=== PATIENT | female | born 1935 | race Caucasian/White ===

== ENCOUNTER → 2016-10-28 | Outpatient (CLI) | payer MEDICARE, OTHER | LOC: MW.CHGS 08:00 | DX: D64.9 Anemia, unspecified (principal) | CPT/HCPCS: 99204 ==

== ENCOUNTER 2018-01-15 09:03 | Emergency (ER) | payer MEDICARE, OTHER ==
[2018-01-15] MEDS ORDERED: Ketorolac 60 MG/2 ML SDV IM ONE (09:44)
--- NOTE | 2018-01-15 09:52 | EDM.PDOC ---
ED HPI GENERAL MEDICAL PROBLEM - General Chief Complaint: Neck Problem Stated Complaint: NECK PAIN Time Seen by Provider: 01/15/18 09:35 - History of Present Illness INITIAL COMMENTS - FREE TEXT/NARRATIVE: HISTORY AND PHYSICAL: History of present illness: 82-year-old female presenting to the emergency department with chief complaint of bilateral neck pain 2 days . And states that approximately 2 days ago and have bilateral neck pain. She denies any trauma to the area or waking up with the symptoms. She has never had similar symptoms in the past. Initially she went to the urgent care here in [place] and was given 2 IM injections which she believes one was for pain in the other was for muscle relaxation. She was also given a description for a muscle relaxant, Flexeril 5 mg, which he states has not been working. States that the pain starts at the base of her skull and radiates posteriorly into her shoulders. She denies any decrease in strength, motion, sensation. She denies any symptoms of infection including fever, chills, malaise, nausea, abdominal pain, diarrhea. She currently denies any chest pain, palpitations, shortness of breath, syncopal episodes, or focal neurologic deficits. She has no significant cardiac history other than hypertension. No history of DE. She denies any leg pain. Review of systems: As per history of present illness and below otherwise all systems reviewed and negative. Past medical history: As per history of present illness and as reviewed below otherwise noncontributory. Surgical history: As per history of present illness and as reviewed below otherwise noncontributory. Social history: No reported history of drug or alcohol abuse. Family history: As per history of present illness and as reviewed below otherwise noncontributory. Physical exam: HEENT: Atraumatic, normocephalic, pupils reactive, negative for conjunctival pallor or scleral icterus, mucous membranes moist, throat clear, neck supple, nontender, trachea midline. Lungs: Clear to auscultation, breath sounds equal bilaterally, chest nontender. Heart: S1S2, regular, negative for clicks, rubs, or JVD. Abdomen: Soft, nondistended, nontender. Negative for masses or hepatosplenomegaly. Negative for costovertebral tenderness. Pelvis: Stable nontender. Genitourinary: Deferred. Rectal: Deferred. Extremities: Atraumatic, negative for cords or calf pain. Neurovascular unremarkable. Neuro: Awake, alert, oriented. Cranial nerves II through XII unremarkable. Cerebellum unremarkable. Motor and sensory unremarkable throughout. Exam nonfocal. Diagnostics: Cervical spine x-ray Therapeutics: Toradol 60 mg IM \ Methocar Impression: Neck strain Cervical degenerative disc disease anterolithiasis at C4-c5 Muscle spasm Plan: X-rays of her cervical spine revealed diffuse mild degenerative disc height loss as well as minimal anterolisthesis at C4?the C5. There was also mild to moderate facet arthrosis diffusely without evidence of acute fracture or bone lesions. Patient was advised of findings and instructed to use daily stretching exercises as well as take prescribed muscle relaxant methocarbamol. She was given Tylenol 3 #12 to help with her sleep. Patient was discharged in good conditions with above instructions and instructed to follow-up with her primary care provider Dr. Oliveros next week. Patient was discharged in good condition with instructions to return to emergency department if she had any new or worsening symptoms. Right Neck Pain Score (Numeric/FACES): 8 - Related Data Allergies Allergy/AdvReac Type Severity Reaction Status Date / Time hydrocodone Allergy Hallucinati Verified 01/15/18 09:21 ons Sulfa (Sulfonamide Allergy Rash Verified 01/15/18 09:21 Antibiotics) Home Meds: Home Meds ALPRAZolam [Xanax] 1 tab PO ASDIRECTED 01/15/18 [History] Amitriptyline [Elavil] 1 tab PO DAILY 01/15/18 [History] Levothyroxine 1 tab PO DAILY 01/15/18 [History] Losartan [Cozaar] 50 mg PO DAILY 01/15/18 [History] PARoxetine HCl [Paxil] 1 tab PO DAILY 01/15/18 [History] atorvaSTATin [Lipitor] 1 tab PO DAILY 01/15/18 [History] metFORMIN [Glucophage XR] 100 mg PO DAILY 01/15/18 [History] Past Medical History Cardiovascular History: Reports: High Cholesterol, Hypertension Respiratory History: Reports: Other (See Below) Other Respiratory History: emphysema Psychiatric History: Reports: Anxiety - Infectious Disease History Infectious Disease History: Reports: Chicken Pox - Past Surgical History HEENT Surgical History: Reports: Tonsillectomy Other Musculoskeletal Surgeries/Procedures:: L shoulder replacement, bilat knee replacement Social & Family History - Family History Family Medical History: Noncontributory - Tobacco Use Smoking Status *Q: Former Smoker Used Tobacco, but Quit: Yes Month/Year Tobacco Last Used: 1994 - Caffeine Use Caffeine Use: Reports: Coffee - Recreational Drug Use Recreational Drug Use: No ED ROS GENERAL - Review of Systems Review Of Systems: See Below ED EXAM, GENERAL - Physical Exam Exam: See Below Course - Vital Signs Last Recorded V/S: Last Vital Signs Temp 98.4 F 01/15/18 09:17 Pulse 118 H 01/15/18 09:17 Resp 20 01/15/18 09:17 BP 179/84 H 01/15/18 09:17 Pulse Ox 97 01/15/18 09:17 - Orders/Labs/Meds Orders: Active Orders 24 hr Category Date Time Status Cervical Spine 2V or 3V [CR] Stat Exams 01/15/18 09:44 Taken Meds: Medications Discontinued Medications Generic Name Dose Route Start Last Admin Trade Name Freq PRN Reason Stop Dose Admin Ketorolac Tromethamine 60 mg 01/15/18 09:44 01/15/18 10:06 Toradol IM 01/15/18 09:45 60 mg ONETIME ONE Administration Departure - Departure Time of Disposition: 11:08 Disposition: Home, Self-Care 01 Condition: Good Clinical Impression: Strain of neck - Discharge Information Referrals: PCP,None [Primary Care Provider] - Forms: ED Department Discharge Additional Instructions: My general discharge The following information is given to patients seen in the emergency department who are being discharged to home. This information is to outline your options for follow-up care. We provide all patients seen in our emergency department with a follow-up referral. The need for follow-up, as well as the timing and circumstances, are variable depending upon the specifics of your emergency department visit. If you don't have a primary care physician on staff, we will provide you with a referral. We always advise you to contact your personal physician following an emergency department visit to inform them of the circumstance of the visit and for follow-up with them and/or the need for any referrals to a consulting specialist. The emergency department will also refer you to a specialist when appropriate. This referral assures that you have the opportunity for follow-up care with a specialist. All of these measure are taken in an effort to provide you with optimal care, which includes your follow-up. Under all circumstances we always encourage you to contact your private physician who remains a resource for coordinating your care. When calling for follow-up care, please make the office aware that this follow-up is from your recent emergency room visit. If for any reason you are refused follow-up, please contact the [facility] Emergency Department at and asked to speak to the emergency department charge nurse. [address] [address] Follow-up with primary care provider next week. Take medications as prescribed and return to emergency department if any new or worsening symptoms - My Orders Last 24 Hours: My Active Orders 01/15/18 09:44 Cervical Spine 2V or 3V [CR] Stat - Assessment/Plan Last 24 Hours: My Active Orders 01/15/18 09:44 Cervical Spine 2V or 3V [CR] Stat
--- NOTE | 2018-01-17 10:39 | CR ---
EXAM DATE: 01/15/18 PATIENT'S AGE: 82 Patient: LISA RODRIGUEZ Facility: [place], [place] Site . Site : [id number] Study: XRay Spine Cervical [id number]/19/2018 10:24:41 AM Ordering Physician: Willy Rousseau Final Report: INDICATION: Pain. TECHNIQUE: Three views. IMPRESSION: Diffuse mild degenerative disk height loss. Minimal anterolisthesis C4-5. Mild to moderate facet arthrosis diffusely. No acute fracture. No bone lesion. Prevertebral soft tissues appear normal. Dictated by Jose Davalos MD @ Jan 15 2018 10:53AM (Electronic Signature) Report Signed by Proxy. OTF
== END 2018-01-15 11:30 | disposition home or self-care (01) ==
LOC: MW.ED 09:03
DX: S16.1XXA Strain of muscle, fascia and tendon at neck level, initial encounter (principal); M50.30 Other cervical disc degeneration, unspecified cervical region; M43.12 Spondylolisthesis, cervical region; X58.XXXA Exposure to other specified factors, initial encounter
CPT/HCPCS: 72040; 96372; 99283; J1885

== ENCOUNTER 2020-04-27 12:42 | Emergency (ER) | payer MEDICARE, OTHER ==
--- NOTE | 2020-04-27 13:18 | EDM.PDOC ---
ED HPI GENERAL MEDICAL PROBLEM - General Chief Complaint: Fever Stated Complaint: FEVER/MUSCLE ACHES Time Seen by Provider: 04/27/20 12:48 - History of Present Illness INITIAL COMMENTS - FREE TEXT/NARRATIVE: HISTORY AND PHYSICAL: History of present illness: This 84-year-old female presents to the emergency department with a past medical history of hypertension, diabetes mellitus and hyperlipidemia. Patient presents with fever, body aches, headache, sore throat, runny nose, and intermittent cough. Denies any other symptoms. No chest pain. No other associated signs or symptoms. No other modifying, aggravating or alleviating factors. Previous COVID-19 testing 2 or 3 weeks ago and was negative. Review of systems: A 10-point review of systems, other than pertinent positives and negatives as stated per HPI, is otherwise negative. Past medical history: As per history of present illness and as reviewed below otherwise noncontributory. Surgical history: As per history of present illness and as reviewed below otherwise noncontributory. Social history: No reported history of drug or alcohol abuse. Family history: As per history of present illness and as reviewed below otherwise noncontributory. Physical exam: VITAL SIGNS: Reviewed. GENERAL: Mild distress. HEAD: No signs of head trauma. EYES: Pupils are equal. Extraocular motions intact. EARS: Hearing grossly intact. MOUTH: Oropharynx is normal. NECK: No adenopathy, no JVD. CHEST: Mild tachypnea. No accessory muscle use. No adventitious breath sounds. CARDIAC: Regular rate and rhythm. Normal S1 and S2, without murmurs, gallops, or rubs. VASCULAR: Peripheral pulses normal and equal in all extremities. ABDOMEN: Soft, without detectable tenderness. No sign of distention. No rebound or guarding, and no masses palpated. MUSCULOSKELETAL: Good range of motion of all major joints. Extremities without clubbing, cyanosis or edema. NEUROLOGIC EXAM: Alert and oriented x 3. No focal sensory or motor deficits. Speech normal. Follows commands. PSYCHIATRIC: Mood normal. SKIN: No rash or lesions. Initial Differential Diagnosis & Plan: Likely COVID-19. Other differential includes viral infection not related to pandemic COVID-19, atypical pneumonia, typical pneumonia, sinusitis. Chest x-ray, COVID-19 testing, laboratory analysis, initial oxygen saturation is reassuring. Unlikely to require admission. Definitive disposition and diagnosis as appropriate pending reevaluation and review of above. generalized bodyaches Pain Score (Numeric/FACES): 5 - Related Data Allergies Allergy/AdvReac Type Severity Reaction Status Date / Time hydrocodone Allergy Hallucinati Verified 04/27/20 13:15 ons Sulfa (Sulfonamide Allergy Rash Verified 04/27/20 13:15 Antibiotics) Home Meds: Home Meds ALPRAZolam [Xanax] 1 tab PO ASDIRECTED 01/15/18 [History] Amitriptyline [Elavil] 1 tab PO DAILY 01/15/18 [History] Levothyroxine 1 tab PO DAILY 01/15/18 [History] Losartan [Cozaar] 50 mg PO DAILY 01/15/18 [History] PARoxetine HCl [Paxil] 1 tab PO DAILY 01/15/18 [History] atorvaSTATin [Lipitor] 1 tab PO DAILY 01/15/18 [History] metFORMIN [Glucophage XR] 100 mg PO DAILY 01/15/18 [History] Prochlorperazine [Compazine] 10 mg PO Q8H PRN 3 Days #17 tab 04/27/20 [Rx] Past Medical History Cardiovascular History: Reports: High Cholesterol, Hypertension Respiratory History: Reports: Other (See Below) Other Respiratory History: emphysema Psychiatric History: Reports: Anxiety - Infectious Disease History Infectious Disease History: Reports: Chicken Pox - Past Surgical History HEENT Surgical History: Reports: Tonsillectomy Other Musculoskeletal Surgeries/Procedures:: L shoulder replacement, bilat knee replacement Social & Family History - Family History Family Medical History: Noncontributory - Caffeine Use Caffeine Use: Reports: Coffee ED ROS GENERAL - Review of Systems Review Of Systems: See Below (noted) ED EXAM, GENERAL - Physical Exam Exam: See Below (noted) EKG INTERPRETATION EKG Interpretation Comments: 12 lead EKG interpretation Obtained: April 27, 2020 at 1:36 PM Rhythm: Sinus Rate: [place]: Normal Intervals: Normal ST/T Segments: No acute ischemic changes Interpretation: Sinus Rhythm Course - Vital Signs Last Recorded V/S: Last Vital Signs Temp 98.2 F 04/27/20 13:07 Pulse 101 H 04/27/20 14:15 Resp 19 04/27/20 14:15 BP 176/70 H 04/27/20 14:15 Pulse Ox 96 04/27/20 14:15 - Orders/Labs/Meds Orders: Active Orders 24 hr Category Date Time Status EKG 12 Lead [EKG Documentation Completion] [RC] STAT Care 04/27/20 13:15 Active Chest 1V Frontal [CR] Stat Exams 04/27/20 13:14 Ordered Chest 1V Frontal [CR] Stat Exams 04/27/20 14:42 Stop Req Labs: Laboratory Tests 04/27/20 04/27/20 04/27/20 Range/Units 13:48 13:48 13:48 WBC 9.18 (4.0-11.0) K/uL RBC 4.02 L (4.30-5.90) M/uL Hgb 12.1 (12.0-16.0) g/dL Hct 37.0 (36.0-46.0) % MCV 92.0 (80.0-98.0) fL MCH 30.1 (27.0-32.0) pg MCHC 32.7 (31.0-37.0) g/dL RDW Std Deviation 45.7 (28.0-62.0) fl RDW Coeff of Angelia 13 (11.0-15.0) % Plt Count 174 (150-400) K/uL MPV 10.90 (7.40-12.00) fL Neut % (Auto) 63.8 (48.0-80.0) % Lymph % (Auto) 26.5 (16.0-40.0) % [place] % (Auto) 8.4 (0.0-15.0) % Eos % (Auto) 0.8 (0.0-7.0) % Baso % (Auto) 0.5 (0.0-1.5) % Neut # (Auto) 5.9 H (1.4-5.7) K/uL Lymph # (Auto) 2.4 (0.6-2.4) K/uL [place] # (Auto) 0.8 (0.0-0.8) K/uL Eos # (Auto) 0.1 (0.0-0.7) K/uL Baso # (Auto) 0.1 (0.0-0.1) K/uL Nucleated RBC % 0.0 /100WBC Nucleated RBCs # 0 K/uL Lactate 2.2 H* (0.20-2.00) mmol/L Sodium 133 L (136-145) mmol/L Potassium 4.2 (3.5-5.1) mmol/L Chloride 98 (98-107) mmol/L Carbon Dioxide 23.5 (21.0-32.0) mmol/L BUN 9 (7.0-18.0) mg/dL Creatinine 0.8 (0.6-1.0) mg/dL Est Cr Clr Drug Dosing 47.95 mL/min Estimated GFR (MDRD) > 60.0 ml/min Glucose 117 H (74-106) mg/dL Calcium 8.8 (8.5-10.1) mg/dL Total Bilirubin 0.3 (0.2-1.0) mg/dL AST 104 H (15-37) IU/L ALT 95 H (14-63) IU/L Alkaline Phosphatase 59 (46-116) U/L C-Reactive Protein 0.90 (0.00-0.90) mg/dL B-Natriuretic Peptide (<100) PG/ML Total Protein 7.2 (6.4-8.2) g/dL Albumin 3.7 (3.4-5.0) g/dL Globulin 3.5 (2.6-4.0) g/dL Albumin/Globulin Ratio 1.1 (0.9-1.6) COVID-19 (WILFRED) (NEGATIVE) 04/27/20 04/27/20 Range/Units 13:48 14:04 WBC (4.0-11.0) K/uL RBC (4.30-5.90) M/uL Hgb (12.0-16.0) g/dL Hct (36.0-46.0) % MCV (80.0-98.0) fL MCH (27.0-32.0) pg MCHC (31.0-37.0) g/dL RDW Std Deviation (28.0-62.0) fl RDW Coeff of Angelia (11.0-15.0) % Plt Count (150-400) K/uL MPV (7.40-12.00) fL Neut % (Auto) (48.0-80.0) % Lymph % (Auto) (16.0-40.0) % [place] % (Auto) (0.0-15.0) % Eos % (Auto) (0.0-7.0) % Baso % (Auto) (0.0-1.5) % Neut # (Auto) (1.4-5.7) K/uL Lymph # (Auto) (0.6-2.4) K/uL [place] # (Auto) (0.0-0.8) K/uL Eos # (Auto) (0.0-0.7) K/uL Baso # (Auto) (0.0-0.1) K/uL Nucleated RBC % /100WBC Nucleated RBCs # K/uL Lactate (0.20-2.00) mmol/L Sodium (136-145) mmol/L Potassium (3.5-5.1) mmol/L Chloride (98-107) mmol/L Carbon Dioxide (21.0-32.0) mmol/L BUN (7.0-18.0) mg/dL Creatinine (0.6-1.0) mg/dL Est Cr Clr Drug Dosing mL/min Estimated GFR (MDRD) ml/min Glucose (74-106) mg/dL Calcium (8.5-10.1) mg/dL Total Bilirubin (0.2-1.0) mg/dL AST (15-37) IU/L ALT (14-63) IU/L Alkaline Phosphatase (46-116) U/L C-Reactive Protein (0.00-0.90) mg/dL B-Natriuretic Peptide 19 (<100) PG/ML Total Protein (6.4-8.2) g/dL Albumin (3.4-5.0) g/dL Globulin (2.6-4.0) g/dL Albumin/Globulin Ratio (0.9-1.6) COVID-19 (WILFRED) POSITIVE H (NEGATIVE) - Re-Assessments/Exams Free Text/Narrative Re-Assessment/Exam: 04/27/20 14:59 The patient is doing well. Her oxygen saturation on my reevaluation is 95%. She is COVID-19 positive. No evidence of significant bilateral pneumonia. I w ill be discharging her home at this time for expectant care at home. I will give her an antiemetic to help with her cough and mild nausea. My diagnostic impression: 1. COVID-19 infection 2. History of hypertension 3. History of diabetes mellitus 4. History of hyperlipidemia The patient does have significant risk factors however at this time she does not meet admission criteria because her oxygen saturation is normal on room air. Departure - Departure Time of Disposition: 15:00 Disposition: Home, Self-Care 01 Clinical Impression: COVID-19 - Discharge Information *PRESCRIPTION DRUG MONITORING PROGRAM REVIEWED*: Not Applicable *COPY OF PRESCRIPTION DRUG MONITORING REPORT IN PATIENT EMERALD: Not Applicable Instructions: COVID-19 Frequently Asked Questions, COVID-19, COVID-19: How to Protect Yourself and Others - CDC, Prevent the Spread of COVID-19 if You Are Sick - [facility] Referrals: Marvin Oliveros MD [Primary Care Provider] - Forms: ED Department Discharge Additional Instructions: The following information is given to patients seen in the emergency department who are being discharged to home. This information is to outline your options for follow-up care. We provide all patients seen in our emergency department with a follow-up referral. The need for follow-up, as well as the timing and circumstances, are variable depending upon the specifics of your emergency department visit. If you don't have a primary care physician on staff, we will provide you with a referral. We always advise you to contact your personal physician following an emergency department visit to inform them of the circumstance of the visit and for follow-up with them and/or the need for any referrals to a consulting s pecialist. The emergency department will also refer you to a specialist when appropriate. This referral assures that you have the opportunity for follow-up care with a specialist. All of these measure are taken in an effort to provide you with optimal care, which includes your follow-up. Thank you for coming to the [facility] urgency department for your care today. It was Dr. Montez's pleasure to take care of you. [facility] - Primary Care [address] [place] [id number] [address] [address] You have COVID-19 infection. Your oxygen saturation is normal. You are at high risk to have complications from this disease including respiratory failure and other complications. If you are feeling worse please come back and we will check your oxygen saturation and reevaluate you. Currently do not meet ad mission criteria. There are no outpatient medications that have been proven to be effective in helping with this disease. Please return if you have any concerns. We are always happy to see you. Under all circumstances we always encourage you to contact your private physician who remains a resource for coordinating your care. When calling for follow-up care, please make the office aware that this follow-up is from your recent emergency room visit. If for any reason you are refused follow-up, please contact the [facility] Emergency Department at and asked to speak to the emergency department charge nurse. Sepsis Event Note (ED) - Evaluation Sepsis Screening Result: No Definite Risk - Focused Exam Vital Signs: Vital Signs Temp Pulse Resp BP Pulse Ox 04/27/20 14:15 101 H 19 176/70 H 96 04/27/20 13:07 98.2 F 93 20 152/63 H 95 - My Orders Last 24 Hours: My Active Orders 04/27/20 13:14 Chest 1V Frontal [CR] Stat 04/27/20 13:15 EKG 12 Lead [EKG Documentation Completion] [RC] STAT 04/27/20 14:42 Chest 1V Frontal [CR] Stat - Assessment/Plan Last 24 Hours: My Active Orders 04/27/20 13:14 Chest 1V Frontal [CR] Stat 04/27/20 13:15 EKG 12 Lead [EKG Documentation Completion] [RC] STAT 04/27/20 14:42 Chest 1V Frontal [CR] Stat
[2020-04-27 14:29] LABS: BLOOD UREA NITROGEN,BUN 9 mg/dL (7.0-18.0); CARBON DIOXIDE,CO2 23.5 mmol/L (21.0-32.0); CHLORIDE,CL 98 mmol/L (98-107); GLUCOSE RANDOM 117 mg/dL (74-106); POTASSIUM,K 4.2 mmol/L (3.5-5.1); SODIUM,NA 133 mmol/L (136-145)
--- NOTE | 2020-04-27 16:08 | CR ---
INDICATION: COVID positive TECHNIQUE: Chest 1 view COMPARISON: None FINDINGS: Cardiovascular and mediastinum: Heart size and vasculature are normal in caliber and appearance. Lungs and pleural spaces: Lungs are clear. No sign of infiltrate or mass. No sign of pleural effusion. No pneumothorax. Bones and soft tissues: No significant findings. IMPRESSION: Negative chest. No sign of pneumonia. Dictated by Varun Guillaume MD @ Apr 27 2020 4:06PM Signed by Dr. Varun Guillaume @ Apr 27 2020 4:06PM
== END 2020-04-27 15:34 | disposition home or self-care (01) ==
LOC: MW.ED 12:42
DX: U07.1 COVID-19 (principal); I10 Essential (primary) hypertension; E78.5 Hyperlipidemia, unspecified; E11.9 Type 2 diabetes mellitus without complications; F41.9 Anxiety disorder, unspecified; J43.9 Emphysema, unspecified; Z88.2 Allergy status to sulfonamides; Z88.5 Allergy status to narcotic agent; Z79.899 Other long term (current) drug therapy
CPT/HCPCS: 36415; 71045; 80053; 83605; 83880; 85025; 86140; 93005; 99284; U0002; 99283

== ENCOUNTER 2020-10-29 06:41 | Day surgery (SDC) | payer MEDICARE, OTHER ==
[~2020-10-29 06:41] MED LIST: Lactated Ringers 1,000 ML IV SCH; Sodium Chloride 0.9% 10 ML SDV IV PRN; Sodium Chloride 0.9% 10 ML Syringe FLUSH PRN; Sodium Chloride 0.9% 2.5 ML Syringe FLUSH PRN
[2020-10-29] MEDS ORDERED: Propofol 200 MG/20 ML SDV ONE ×3 (06:53→08:23)
[2020-10-29] MEDS ORDERED: fentaNYL 100 MCG/2 ML SDV ONE (06:59)
--- NOTE | 2020-10-29 07:24 | PCM.PREANE ---
Preanesthetic Assessment - Anesthesia/Transfusion/Family Hx Anesthesia History: Prior Anesthesia Without Reaction Other Type of Anesthesia Reaction Comment: hard to wake up after shoulder surgery Family History of Anesthesia Reaction: No Transfusion History: No Prior Transfusion(s) Intubation History: Unknown - Review of Systems General: No Symptoms Pulmonary: No Symptoms Cardiovascular: No Symptoms Gastrointestinal: No Symptoms Neurological: No Symptoms Other: Reports: None - Physical Assessment Vital Signs: Last Vital Signs Temp 35.8 C L 10/29/20 06:44 Pulse 89 10/29/20 06:44 Resp 15 10/29/20 06:44 BP 131/69 10/29/20 06:44 Pulse Ox 95 10/29/20 06:44 Height: 5 ft 5 in Weight: 71.214 kg ASA Class: 3 Mental Status: Alert & Oriented x3 Airway Class: Mallampati = 2 Dentition: Reports: Dentures (upper), Partial (lower) Thyro-Mental Finger Breadths: 3 Mouth Opening Finger Breadths: 3 ROM/Head Extension: Limited/Partial Lungs: Clear to Auscultation, Normal Respiratory Effort Cardiovascular: Regular Rate, Regular Rhythm - Allergies Allergies/Adverse Reactions: Allergies Allergy/AdvReac Type Severity Reaction Status Date / Time hydrocodone Allergy Hallucinati Verified 10/23/20 12:03 ons Sulfa (Sulfonamide Allergy Rash Verified 10/23/20 12:03 Antibiotics) - Blood Blood Available: No - Anesthesia Plan Pre-Op Medication Ordered: None - Acknowledgements Anesthesia Type Planned: MAC Pt an Appropriate Candidate for the Planned Anesthesia: Yes Alternatives and Risks of Anesthesia Discussed w Pt/Guardian: Yes Pt/Guardian Understands and Agrees with Anesthesia Plan: Yes PreAnesthesia Questionnaire HEENT History: Reports: Impaired Vision, Other (See Below) Other HEENT History: wears glasses Cardiovascular History: Reports: High Cholesterol, Hypertension Other Cardiovascular History: varicose veins Respiratory History: Reports: Other (See Below) Other Respiratory History: emphysema Gastrointestinal History: Reports: GERD Other Gastrointestinal History: positive cologuard Genitourinary History: Reports: None [employer]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: Musculoskeletal History: Reports: Arthritis Other Musculoskeletal History: hx fx ankle Neurological History: Reports: Migraines Psychiatric History: Reports: Anxiety Endocrine/Metabolic History: Reports: Diabetes, Type II, Hypothyroidism Hematologic History: Reports: Anemia Immunologic History: Reports: None Oncologic (Cancer) History: Reports: None Dermatologic History: Reports: None - Infectious Disease History Infectious Disease History: Reports: Chicken Pox - Past Surgical History Head Surgeries/Procedures: Reports: None HEENT Surgical History: Reports: Cataract Surgery, Tonsillectomy Cardiovascular Surgical History: Reports: None Respiratory Surgical History: Reports: None GI Surgical History: Reports: Appendectomy, Colonoscopy (20 years ago -[place]) Female Surgical History: Reports: Hysterectomy, Salpingo-Oophorectomy, Other (See Below) Other Female Surgeries/Procedures: axillary lumpectomy Endocrine Surgical History: Reports: Thyroidectomy, Other (See Below) Other Endocrine Surgeries/Procedures: partial thyroidectomy Neurological Surgical History: Reports: None Musculoskeletal Surgical History: Reports: Knee Replacement, Shoulder Surgery, Other (See Below) (excision of mass rt. foot) Other Musculoskeletal Surgeries/Procedures:: L shoulder replacement, bilat knee replacement Oncologic Surgical History: Reports: None Dermatological Surgical History: Reports: None - SUBSTANCE USE Tobacco Use Status *Q: Former Tobacco User Tobacco Use Within Last Twelve Months: No Recreational Drug Use History: No - HOME MEDS Home Medications: Home Meds Levothyroxine 112 mcg PO DAILY 01/15/18 [History] Losartan [Cozaar] 100 mg PO DAILY 01/15/18 [History] PARoxetine HCl [Paxil] 20 mg PO DAILY 01/15/18 [History] atorvaSTATin [Lipitor] 10 mg PO BEDTIME 01/15/18 [History] metFORMIN [Glucophage XR] 500 mg PO ACBREAKFAST 01/15/18 [History] ALPRAZolam [Alprazolam] 0.25 mg PO BEDTIME 10/23/20 [History] Aspirin [Adult Aspirin Regimen] 81 mg PO DAILY 10/23/20 [History] Calc/D3/Mag/Zn/Ladonna/Tomas/[place] [Calcium 600 MG Plus Vit D] 1 tab PO BID 10/23/20 [History] Cholecalciferol (Vitamin D3) [Vitamin D3] 5,000 units PO DAILY 10/23/20 [History] Clindamycin Phosphate [Cleocin 2% Vaginal Crm] 1 applic VAG ASDIRECTED PRN 10/23/20 [History] Fluticasone/Vilanterol [Breo Ellipta 200-25 MCG Inhalation Kit] 1 puff INH ASDIRECTED 10/23/20 [History] Multivitamin 1 tab PO DAILY 10/23/20 [History] Omeprazole 20 mg PO ACLUNCH 10/23/20 [History] metFORMIN HCl [Metformin HCl] 1,000 mg PO BEDTIME 10/23/20 [History] - CURRENT (IN HOUSE) MEDS Current Meds: Current Medications Lactated Ringer's (Ringers, Lactated) 1,000 mls @ 125 mls/hr IV ASDIRECTED NEIL Last Admin: 10/29/20 07:05 Dose: 125 mls/hr Documented by: Sodium Chloride (Saline Flush) 2.5 ml FLUSH ASDIRECTED PRN PRN Reason: Keep Vein Open Sodium Chloride (Normal Saline) 10 ml IV ASDIRECTED PRN PRN Reason: IV Use Discontinued Medications Fentanyl (Sublimaze) Confirm Administered Dose 100 mcg .ROUTE .STK-MED ONE Stop: 10/29/20 07:00 Lidocaine HCl (Xylocaine-Mpf 1%) Confirm Administered Dose 5 ml .ROUTE .STK-MED ONE Stop: 10/29/20 06:55 Propofol (Diprivan 20 Ml) Confirm Administered Dose 200 mg .ROUTE .STK-MED ONE Stop: 10/29/20 06:54
--- NOTE | 2020-10-29 08:48 | PCM.OPNOTE ---
- General Post-Op/Procedure Note Date of Surgery/Procedure: 10/29/20 Operative Procedure(s): Diagnostic colonoscopy Findings: cecal polyp, appendical polyp, rectal polyp Pre Op Diagnosis: Positive cologuard test Post-Op Diagnosis: Appendicile orifice polyp, cecal polyp, rectal polyp Anesthesia Technique: [facility] [place] Primary Surgeon: Jeana Salazar Condition: Good
--- NOTE | 2020-10-29 09:08 | PCM.POSTAN ---
POST ANESTHESIA ASSESSMENT - MENTAL STATUS Mental Status: Alert, Oriented - VITAL SIGNS Vital Signs: Last Vital Signs Temp 36.5 C 10/29/20 09:00 Pulse 72 10/29/20 09:00 Resp 14 10/29/20 09:00 BP 150/66 H 10/29/20 09:00 Pulse Ox 93 L 10/29/20 09:00 - RESPIRATORY Respiratory Status: Respiratory Rate WNL, Airway Patent, O2 Saturation Stable - CARDIOVASCULAR CV Status: Pulse Rate WNL, Blood Pressure Stable - GASTROINTESTINAL GI Status: No Symptoms - PAIN Pain Score: 0 - POST OP HYDRATION Hydration Status: Adequate & Stable - OBSERVATIONS Free Text/Narrative:: No anesthesia problems
--- NOTE | 2020-10-29 09:26 | PCM48HPAN ---
Post Anesthesia Note - EVALUATION WITHIN 48HRS OF ANESTHETIC Vital Signs in Normal Range: Yes Patient Participated in Evaluation: Yes Respiratory Function Stable: Yes Airway Patent: Yes Cardiovascular Function Stable: Yes Hydration Status Stable: Yes Pain Control Satisfactory: Yes Nausea and Vomiting Control Satisfactory: Yes Mental Status Recovered: Yes Vital Signs: Last Vital Signs Temp 36.5 C 10/29/20 09:00 Pulse 72 10/29/20 09:00 Resp 14 10/29/20 09:00 BP 150/66 H 10/29/20 09:00 Pulse Ox 93 L 10/29/20 09:00 - COMMENTS/OBSERVATIONS Free Text/Narrative:: No anesthesia problems
--- NOTE | 2020-10-30 07:40 | OR ---
SURGEON: JEANA SALAZAR MD DATE OF PROCEDURE: 10/29/2020 PREOPERATIVE DIAGNOSIS: Positive Cologuard. POSTOPERATIVE DIAGNOSES: 1. Cecal polyp. 2. Appendiceal polyp. 3. Rectal polyp. PROCEDURE PERFORMED: Diagnostic colonoscopy. PRIMARY SURGEON: Jeana Salazar MD. ANESTHESIA: MAC. INSTRUMENT USED: Olympus colonoscope. EXTENT OF EXAMINATION: To the cecum. PREPARATION: Good. LIMITATIONS: None. INDICATIONS FOR EXAMINATION: The patient is an 85-year-old female who presented with a positive Cologuard test. I explained the need for diagnostic colonoscopy. I explained the procedure, expected perioperative course, and the risks. The patient verbalized understanding and wishes to proceed. PROCEDURE IN DETAIL: The patient was brought into the endoscopy suite and placed in the left lateral decubitus position. A time-out was completed verifying the patient's name, age, date of , allergies, and procedure to be performed. Monitored anesthesia care was induced, and continuous oxygen was provided via nasal cannula throughout the procedure. After adequate sedation was achieved, a digital rectal exam was performed. This exam showed mildly enlarged hemorrhoids. A well-lubricated colonoscope was inserted in the rectum and advanced under direct visualization to the level of the cecum. The cecum was identified by both visual and anatomic landmarks. A photograph was taken of the cecal cap; however, due to looping of the scope more proximally, I was unable to retroflex the scope within the cecum. The scope was then fully withdrawn while examining the color, texture, anatomy, and integrity of the mucosa from the cecum to the anal canal. The patient was noted to have a small pedunculated polyp at the appendiceal base. This was removed in piecemeal fashion using a cold biopsy forceps. Adjacent to this was a cecal polyp. It was flat and sessile. It was difficult for me to ascertain whether this was hyperplastic or a tubular adenoma. Either way, I removed it in a piecemeal fashion using a cold biopsy forceps. The remainder of the colon appeared normal. When the scope was brought into the rectum, a small polyp was noted at the proximal aspect of the rectum. This was removed in piecemeal fashion using a cold biopsy forceps and sent to Pathology, labeled as rectal polyp. The scope was then retroflexed within the rectum to allow visualization of the anal canal opening. This appeared normal, and a photograph was taken. The scope was straightened out and fully withdrawn. The cecum to anus time was 30 minutes. The patient tolerated the procedure well was transferred to the PACU in stable condition. ENDOSCOPIC DIAGNOSES: 1. Cecal polyp. 2. Appendiceal polyp. 3. Rectal polyp. RECOMMENDATIONS: Follow up in clinic in 2 weeks. MARCIA TAYLOR /[id number]
== END 2020-10-29 09:35 | disposition home or self-care (01) ==
LOC: MW.SDS 06:41
PROVIDERS: ATTEND Surgery
DX: D12.0 Benign neoplasm of cecum (principal); K64.9 Unspecified hemorrhoids; K62.1 Rectal polyp; D64.9 Anemia, unspecified; I10 Essential (primary) hypertension; E78.00 Pure hypercholesterolemia, unspecified; E03.9 Hypothyroidism, unspecified; E11.9 Type 2 diabetes mellitus without complications; Z88.5 Allergy status to narcotic agent; Z88.2 Allergy status to sulfonamides; Z79.82 Long term (current) use of aspirin; Z79.899 Other long term (current) drug therapy; Z79.890 Hormone replacement therapy; Z98.890 Other specified postprocedural states; Z87.891 Personal history of nicotine dependence
CPT/HCPCS: 45380; J2704; J3010; J7120

== ENCOUNTER 2021-08-29 14:10 | Emergency (ER) | payer MEDICARE, OTHER ==
--- NOTE | 2021-08-29 15:42 | EDM.PDOC ---
ED HPI GENERAL MEDICAL PROBLEM - General Chief Complaint: Upper Extremity Injury/Pain Stated Complaint: BRUISED WRIST Time Seen by Provider: 08/29/21 15:30 Source of Information: Reports: Patient History Limitations: Reports: No Limitations - History of Present Illness INITIAL COMMENTS - FREE TEXT/NARRATIVE: HISTORY AND PHYSICAL: History of present illness: Patient is an 85-year-old female who presents to the emergency department for complaints of bruising on her inner left wrist that she noticed today. The patient states the area is not sore to touch and does not identify any trauma to cause the bruising. The patient is due for surgery soon and is concerned as to the bruising. Patient has never had anything happen like this previously. Besides this incident the patient has been otherwise healthy. Patient denies any fever, chills, headache, change in vision, syncope or near syncope. Denies any chest pain, back pain, shortness of breath or cough. Denies any abdominal pain, nausea, vomiting, diarrhea, constipation or dysuria. Has not noted any blood in urine or stool. Patient has been eating and drinking appropriately. Review of systems: As per history of present illness and below otherwise all systems reviewed and negative. Past medical history: As per history of present illness and as reviewed below otherwise noncontributory. Surgical history: As per history of present illness and as reviewed below otherwise noncontributory. Social history: See social history for further information Family history: As per history of present illness and as reviewed below otherwise noncontributory. Physical exam: General: Well developed and well nourished. Alert and orientated x 3. Nontoxic in appearance and in no acute distress. Vital signs are stable and have been reviewed by me. Nursing notes were reviewed. HEENT: Atraumatic, normocephalic, pupils equal and reactive bilaterally, negative for conjunctival pallor or scleral icterus, mucous membranes moist, TMs normal bilaterally, throat clear, neck supple, nontender, trachea midline. No drooling or trismus noted. No meningeal signs. No hot potato voice noted. Lungs: Clear to auscultation bilaterally. No wheezes, rales, or rhonchi. Chest nontender. Normal work of breathing, no accessory muscles used. Heart: S1S2, regular rate and rhythm without overt murmur, gallops, or rubs. No JVD. No peripheral edema Abdomen: Soft, nondistended, nontender. Normoactive bowel sounds. Negative for masses or costovertebral tenderness. Skin: Intact, warm, dry. Large area of bruising left inner wrist. Hematologic: No petechiae or purpra. Mucosa appropriate color and normal nail bed color and refill. Extremities: Atraumatic, moves all extremities per self without difficulty or deficits, negative for cords or calf pain. Neurovascular unremarkable. Neuro: Awake, alert, oriented. Cranial nerves II through XII unremarkable. Cerebellum unremarkable. Motor and sensory unremarkable throughout. Exam non focal. Psychiatric: Mood and affect are appropriate. Normal thought process. Answering questions appropriately. Notes: *This patient was seen and evaluated during the 2019 SARS-CoV-2 novel coronavir us pandemic period. Community viral transmission is ongoing at time of this encounter and the emergency department is operating under pandemic response procedures. As stated above the patient is an 85-year-old female who presents to the emergency department for complaints of bruising on her inner left wrist that she noticed today. The patient states the area is not sore to touch and does not id entify any trauma to cause the bruising. She is to have surgery and is concerned about the bruising without any cause. I have assured the patient that I told her we could do blood work in the emergency department. The patient would like this to be done. I was told the patient left the emergency room prior to receiving the blood work and being discharged. Definitive disposition and diagnosis as appropriate pending reevaluation and review of above. - Related Data Allergies Allergy/AdvReac Type Severity Reaction Status Date / Time hydrocodone Allergy Hallucinati Verified 08/29/21 14:49 ons Sulfa (Sulfonamide Allergy Rash Verified 08/29/21 14:49 Antibiotics) Home Meds: Home Meds Levothyroxine 112 mcg PO DAILY 01/15/18 [History] Losartan [Cozaar] 100 mg PO DAILY 01/15/18 [History] PARoxetine HCl [Paxil] 20 mg PO DAILY 01/15/18 [History] atorvaSTATin [Lipitor] 10 mg PO BEDTIME 01/15/18 [History] metFORMIN [Glucophage XR] 500 mg PO ACBREAKFAST 01/15/18 [History] ALPRAZolam [Alprazolam] 0.25 mg PO BEDTIME 10/23/20 [History] Aspirin [Adult Aspirin Regimen] 81 mg PO DAILY 10/23/20 [History] Calc/D3/Mag/Zn/Ladonna/Tomas/[place] [Calcium 600 MG Plus Vit D] 1 tab PO BID 10/23/20 [History] Fluticasone/Vilanterol [Breo Ellipta 200-25 MCG Inhalation Kit] 1 puff INH ASDIRECTED 10/23/20 [History] Multivitamin 1 tab PO DAILY 10/23/20 [History] Omeprazole 20 mg PO ACLUNCH 10/23/20 [History] metFORMIN HCl [Metformin HCl] 1,000 mg PO BEDTIME 10/23/20 [History] Past Medical History HEENT History: Reports: Impaired Vision, Other (See Below) Other HEENT History: wears glasses Cardiovascular History: Reports: High Cholesterol, Hypertension Other Cardiovascular History: varicose veins Respiratory History: Reports: Other (See Below) Other Respiratory History: emphysema Gastrointestinal History: Reports: GERD Other Gastrointestinal History: positive cologuard Genitourinary History: Reports: None [employer] History: Reports: Musculoskeletal History: Reports: Arthritis Other Musculoskeletal History: hx fx ankle Neurological History: Reports: Migraines Psychiatric History: Reports: Anxiety Endocrine/Metabolic History: Reports: Diabetes, Type II, Hypothyroidism Hematologic History: Reports: Anemia Immunologic History: Reports: None Oncologic (Cancer) History: Reports: None Dermatologic History: Reports: None - Infectious Disease History Infectious Disease History: Reports: Chicken Pox - Past Surgical History Head Surgeries/Procedures: Reports: None HEENT Surgical History: Reports: Tonsillectomy Cardiovascular Surgical History: Reports: None Respiratory Surgical History: Reports: None GI Surgical History: Reports: Appendectomy, Colonoscopy Female Surgical History: Reports: Hysterectomy, Salpingo-Oophorectomy, Other (See Below) Other Female Surgeries/Procedures: axillary lumpectomy Endocrine Surgical History: Reports: Thyroidectomy, Other (See Below) Other Endocrine Surgeries/Procedures: partial thyroidectomy Neurological Surgical History: Reports: None Musculoskeletal Surgical History: Reports: Knee Replacement, Shoulder Surgery, Other (See Below) Other Musculoskeletal Surgeries/Procedures:: L shoulder replacement, bilat knee replacement Oncologic Surgical History: Reports: None Dermatological Surgical History: Reports: None Social & Family History - Family History Family Medical History: No Pertinent Family History - Caffeine Use Caffeine Use: Reports: Coffee - Recreational Drug Use Recreational Drug Use: No Review of Systems - Review of Systems Review Of Systems: Comprehensive ROS is negative, except as noted in HPI. ED EXAM, GENERAL - Physical Exam Exam: See Below (See dictation) Course - Vital Signs Last Recorded V/S: Last Vital Signs Temp 98.1 F 08/29/21 14:53 Pulse 102 H 08/29/21 14:53 Resp 18 08/29/21 14:53 BP 182/75 H 08/29/21 14:53 Pulse Ox 96 08/29/21 14:53 - Orders/Labs/Meds Labs: Laboratory Tests 08/29/21 08/29/21 08/29/21 Range/Units 15:47 15:47 15:47 WBC 8.51 (4.0-11.0) K/uL RBC 3.99 L (4.30-5.90) M/uL Hgb 11.9 L (12.0-16.0) g/dL Hct 36.7 (36.0-46.0) % MCV 92.0 (80.0-98.0) fL MCH 29.8 (27.0-32.0) pg MCHC 32.4 (31.0-37.0) g/dL RDW Std Deviation 46.3 (28.0-62.0) fl RDW Coeff of Angelia 14 (11.0-15.0) % Plt Count 266 (150-400) K/uL MPV 10.20 (7.40-12.00) fL Neut % (Auto) 52.9 (48.0-80.0) % Lymph % (Auto) 34.4 (16.0-40.0) % Stark % (Auto) 6.6 (0.0-15.0) % Eos % (Auto) 5.2 (0.0-7.0) % Baso % (Auto) 0.9 (0.0-1.5) % Neut # (Auto) 4.5 (1.4-5.7) K/uL Lymph # (Auto) 2.9 H (0.6-2.4) K/uL Stark # (Auto) 0.6 (0.0-0.8) K/uL Eos # (Auto) 0.4 (0.0-0.7) K/uL Baso # (Auto) 0.1 (0.0-0.1) K/uL Nucleated RBC % 0.0 /100WBC Nucleated RBCs # 0 K/uL INR 0.97 APTT 32.5 H (18.6-31.3) SEC Sodium 140 (136-145) mmol/L Potassium 4.0 (3.5-5.1) mmol/L Chloride 101 (98-107) mmol/L Carbon Dioxide 30.3 (21.0-32.0) mmol/L BUN 19 H (7.0-18.0) mg/dL Creatinine 0.8 (0.6-1.0) mg/dL Est Cr Clr Drug Dosing 45.20 mL/min Estimated GFR (MDRD) > 60.0 ml/min Glucose 110 H (74-106) mg/dL Calcium 9.5 (8.5-10.1) mg/dL Total Bilirubin 0.4 (0.2-1.0) mg/dL AST 52 H (15-37) IU/L ALT 51 (14-63) IU/L Alkaline Phosphatase 54 (46-116) U/L Total Protein 7.5 (6.4-8.2) g/dL Albumin 3.7 (3.4-5.0) g/dL Globulin 3.8 (2.6-4.0) g/dL Albumin/Globulin Ratio 1.0 (0.9-1.6) Departure - Departure Time of Disposition: 16:18 Disposition: Against Medical Advice 07 Clinical Impression: Left against medical advice - Discharge Information *PRESCRIPTION DRUG MONITORING PROGRAM REVIEWED*: Not Applicable *COPY OF PRESCRIPTION DRUG MONITORING REPORT IN PATIENT EMERALD: Not Applicable Referrals: Marvin Oliveros MD [Primary Care Provider] - Forms: ED Department Discharge Sepsis Event Note (ED) - Evaluation Sepsis Screening Result: No Definite Risk
[2021-08-29 16:20] LABS: BLOOD UREA NITROGEN,BUN 19 mg/dL (7.0-18.0); CARBON DIOXIDE,CO2 30.3 mmol/L (21.0-32.0); CHLORIDE,CL 101 mmol/L (98-107); GLUCOSE RANDOM 110 mg/dL (74-106); SODIUM,NA 140 mmol/L (136-145)
== END 2021-08-29 16:19 | disposition left against medical advice (07) ==
LOC: MW.ED 14:10
DX: M79.81 Nontraumatic hematoma of soft tissue (principal); E78.00 Pure hypercholesterolemia, unspecified; I10 Essential (primary) hypertension; K21.9 Gastro-esophageal reflux disease without esophagitis; E11.9 Type 2 diabetes mellitus without complications; E03.9 Hypothyroidism, unspecified; Z88.5 Allergy status to narcotic agent; Z88.2 Allergy status to sulfonamides; Z79.899 Other long term (current) drug therapy; Z79.84 Long term (current) use of oral hypoglycemic drugs; Z79.82 Long term (current) use of aspirin
CPT/HCPCS: 36415; 80053; 85025; 85610; 85730; 99283

== ENCOUNTER 2024-04-29 15:46 | Emergency (ER) | payer MEDICARE, OTHER ==
[2024-04-29 17:41] LABS: CORONAVIRUS COVID-19 NAA NEGATIVE (NEGATIVE); INFLUENZA A NAA NEGATIVE (NEGATIVE); INFLUENZA B NAA NEGATIVE (NEGATIVE); RESPIRATORY SYNCYTIAL VIR NAA NEGATIVE (NEGATIVE)
== END 2024-04-29 18:30 | disposition left against medical advice (07) ==
LOC: MW.ED 15:46
DX: R53.83 Other fatigue (principal); I10 Essential (primary) hypertension; E78.00 Pure hypercholesterolemia, unspecified; K21.9 Gastro-esophageal reflux disease without esophagitis; E11.9 Type 2 diabetes mellitus without complications; E03.9 Hypothyroidism, unspecified; Z90.49 Acquired absence of other specified parts of digestive tract; Z90.710 Acquired absence of both cervix and uterus; M19.90 Unspecified osteoarthritis, unspecified site; Z79.82 Long term (current) use of aspirin; Z79.899 Other long term (current) drug therapy; Z79.890 Hormone replacement therapy; Z88.2 Allergy status to sulfonamides; Z88.5 Allergy status to narcotic agent; Z75.8 Other problems related to medical facilities and other health care
CPT/HCPCS: 0241U; 71046; 99283

== ENCOUNTER 2024-07-11 09:42 | Emergency (ER) | payer MEDICARE, OTHER ==
[2024-07-11] MEDS ORDERED: Sodium Chloride 0.9% 2.5 ML Syringe FLUSH PRN (10:16)
[2024-07-11] MEDS ORDERED: Sodium Chloride 0.9% 10 ML Syringe FLUSH PRN (10:16)
[2024-07-11 10:27] LABS: BASOPHILS ABSOLUTE AUTO 0.08 K/uL (0.00-0.20); BASOPHILS PERCENT AUTO 0.7 % (0.0-1.0); EOSINOPHILS ABSOLUTE AUTO 0.22 K/uL (0.00-0.45); EOSINOPHILS PERCENT AUTO 1.9 % (0.0-6.0); HEMATOCRIT 33.8 % (37.0-47.0); IMMATURE GRAN ABSOLUTE AUTO 0.05 K/uL (0.00-0.05); IMMATURE GRAN PERCENT AUTO 0.4 % (0.0-0.4); LYMPHOCYTES ABSOLUTE AUTO 2.33 K/uL (1.00-4.80); LYMPHOCYTES PERCENT AUTO 19.8 % (24.0-44.0); MEAN CORPUSCULAR HGB CONC 32.5 g/dL (32.0-36.0); MEAN CORPUSCULAR VOLUME 92.1 fL (83.0-99.0); MEAN PLATELET VOLUME 10.2 fL (9.4-12.3); NEUTROPHILS ABSOLUTE AUTO 8.38 K/uL (1.80-7.70); NEUTROPHILS PERCENT AUTO 71.2 % (41.0-71.0); PLATELET COUNT,PLT 273 K/uL (150-400); RED BLOOD CELL COUNT 3.67 M/uL (4.10-5.30); WHITE BLOOD CELL COUNT,WBC 11.76 K/uL (3.9-11.3)
[2024-07-11 11:02] LABS: A/G RATIO 0.9 (0.9-1.6); ALBUMIN 3.7 g/dL (3.4-5.0); BILIRUBIN TOTAL 0.7 mg/dL (0.2-1.0); CALCIUM 9.5 mg/dL (8.5-10.1); CARBON DIOXIDE,CO2 27.5 mmol/L (21.0-32.0); CREATININE 0.8 mg/dL (0.6-1.0); EST CRCL DRUG DOSING (CG) 42.78 mL/min; POTASSIUM,K 4.3 mmol/L (3.5-5.1); PROTEIN TOTAL,TP 7.6 g/dL (6.4-8.2)
[2024-07-11] MEDS: Sodium Chloride 0.9% 500 ML IV SCH ×2 (11:53→13:55)
[2024-07-11] MEDS: Acetaminophen 325 MG Tab PO ONE (12:37)
[2024-07-11 13:09] LABS: APPEARANCE,URINE CLEAR; BILIRUBIN,URINE NEGATIVE (NEGATIVE); COLOR,URINE YELLOW; GLUCOSE,URINE NEGATIVE (NEGATIVE); KETONES,URINE NEGATIVE (NEGATIVE); LEUKOCYTE ESTERASE,URINE NEGATIVE (NEGATIVE); NITRITE,URINE NEGATIVE (NEGATIVE); OCCULT BLOOD,URINE NEGATIVE (NEGATIVE); PROTEIN,URINE NEGATIVE (NEGATIVE); UROBILINOGEN,URINE 0.2 EU/dL (<2.0)
== END 2024-07-11 14:30 | disposition home or self-care (01) ==
LOC: MW.ED 09:42
DX: R55 Syncope and collapse (principal); S00.83XA Contusion of other part of head, initial encounter; E87.1 Hypo-osmolality and hyponatremia; E87.8 Other disorders of electrolyte and fluid balance, not elsewhere classified; I10 Essential (primary) hypertension; E78.00 Pure hypercholesterolemia, unspecified; K21.9 Gastro-esophageal reflux disease without esophagitis; E11.9 Type 2 diabetes mellitus without complications; E03.9 Hypothyroidism, unspecified; Z79.899 Other long term (current) drug therapy; Z79.84 Long term (current) use of oral hypoglycemic drugs; Z79.82 Long term (current) use of aspirin; Z88.2 Allergy status to sulfonamides; Z88.8 Allergy status to other drugs, medicaments and biological substances; Z75.8 Other problems related to medical facilities and other health care; W18.2XXA Fall in (into) shower or empty bathtub, initial encounter; Y92.002 Bathroom of unspecified non-institutional (private) residence as the place of occurrence of the external cause
CPT/HCPCS: 36415; 70450; 80053; 81003; 84484; 85025; 85610; 93005; 96360; 99284; A9270; J7040; 93010

== ENCOUNTER 2024-07-13 16:37 | Observation (INO) | payer MEDICARE, OTHER ==
[2024-07-13 18:12] LABS: APPEARANCE,URINE CLEAR; BILIRUBIN,URINE NEGATIVE (NEGATIVE); COLOR,URINE YELLOW; GLUCOSE,URINE NEGATIVE (NEGATIVE); KETONES,URINE NEGATIVE (NEGATIVE); LEUKOCYTE ESTERASE,URINE NEGATIVE (NEGATIVE); NITRITE,URINE POSITIVE (NEGATIVE); OCCULT BLOOD,URINE NEGATIVE (NEGATIVE); PH,URINE 6.5 (5.0-8.0); PROTEIN,URINE NEGATIVE (NEGATIVE); UROBILINOGEN,URINE 0.2 EU/dL (<2.0)
[2024-07-13 18:16] LABS: BASOPHILS ABSOLUTE AUTO 0.08 K/uL (0.00-0.20); BASOPHILS PERCENT AUTO 0.7 % (0.0-1.0); EOSINOPHILS ABSOLUTE AUTO 0.18 K/uL (0.00-0.45); EOSINOPHILS PERCENT AUTO 1.7 % (0.0-6.0); HEMATOCRIT 30.8 % (37.0-47.0); HEMOGLOBIN 10.3 g/dL (12.0-16.0); IMMATURE GRAN ABSOLUTE AUTO 0.03 K/uL (0.00-0.05); IMMATURE GRAN PERCENT AUTO 0.3 % (0.0-0.4); LYMPHOCYTES ABSOLUTE AUTO 3.51 K/uL (1.00-4.80); LYMPHOCYTES PERCENT AUTO 32.8 % (24.0-44.0); MEAN CORPUSCULAR HEMOGLOBIN 30.7 pg (28.0-32.0); MEAN CORPUSCULAR HGB CONC 33.4 g/dL (32.0-36.0); MEAN CORPUSCULAR VOLUME 91.9 fL (83.0-99.0); MONOCYTES ABSOLUTE AUTO 0.84 K/uL (0.00-0.80); MONOCYTES PERCENT AUTO 7.9 % (0.0-8.0); NEUTROPHILS ABSOLUTE AUTO 6.06 K/uL (1.80-7.70); NEUTROPHILS PERCENT AUTO 56.6 % (41.0-71.0); PLATELET COUNT,PLT 289 K/uL (150-400); RED BLOOD CELL COUNT 3.35 M/uL (4.10-5.30)
[2024-07-13 18:19] LABS: BACTERIA,URINE RARE (NEGATIVE); EPITHELIAL CELLS,URINE NOT SEEN (NONE-FEW); RBC,URINE 0-1 (0-2/HPF); WBC,URINE 0-1 (0-5/HPF)
[2024-07-13 18:39] LABS: ALBUMIN 3.6 g/dL (3.4-5.0); BILIRUBIN TOTAL 0.4 mg/dL (0.2-1.0); CALCIUM 9.3 mg/dL (8.5-10.1); CARBON DIOXIDE,CO2 27.9 mmol/L (21.0-32.0); CREATININE 0.9 mg/dL (0.6-1.0); EST CRCL DRUG DOSING (CG) 38.03 mL/min; POTASSIUM,K 4.1 mmol/L (3.5-5.1); PROTEIN TOTAL,TP 7.3 g/dL (6.4-8.2)
[2024-07-13] MEDS: Acetaminophen 500 MG Tab PO ONE (20:14)
[2024-07-13] MEDS: Polyethylene Glycol 3350 Powder 17 GM Packet PO SCH (22:40)
[2024-07-14] MEDS: atorvaSTATin 20 MG Tab PO SCH (00:35)
[2024-07-14] MEDS: Levothyroxine 112 MCG Tab PO SCH (06:59)
[2024-07-14 07:02] LABS: BASOPHILS ABSOLUTE AUTO 0.09 K/uL (0.00-0.20); EOSINOPHILS ABSOLUTE AUTO 0.33 K/uL (0.00-0.45); EOSINOPHILS PERCENT AUTO 3.7 % (0.0-6.0); HEMOGLOBIN 9.7 g/dL (12.0-16.0); IMMATURE GRAN ABSOLUTE AUTO 0.02 K/uL (0.00-0.05); IMMATURE GRAN PERCENT AUTO 0.2 % (0.0-0.4); LYMPHOCYTES ABSOLUTE AUTO 3.04 K/uL (1.00-4.80); MEAN CORPUSCULAR HEMOGLOBIN 30.6 pg (28.0-32.0); MEAN CORPUSCULAR HGB CONC 33.4 g/dL (32.0-36.0); MEAN CORPUSCULAR VOLUME 91.5 fL (83.0-99.0); MEAN PLATELET VOLUME 10.5 fL (9.4-12.3); MONOCYTES ABSOLUTE AUTO 0.73 K/uL (0.00-0.80); MONOCYTES PERCENT AUTO 8.2 % (0.0-8.0); NEUTROPHILS ABSOLUTE AUTO 4.74 K/uL (1.80-7.70); NEUTROPHILS PERCENT AUTO 52.9 % (41.0-71.0); PLATELET COUNT,PLT 269 K/uL (150-400); RED BLOOD CELL COUNT 3.17 M/uL (4.10-5.30); WHITE BLOOD CELL COUNT,WBC 8.95 K/uL (3.9-11.3)
[2024-07-14 07:19] LABS: CALCIUM 9.7 mg/dL (8.5-10.1); CARBON DIOXIDE,CO2 28.4 mmol/L (21.0-32.0); CREATININE 0.8 mg/dL (0.6-1.0); EST CRCL DRUG DOSING (CG) 42.78 mL/min; POTASSIUM,K 4.2 mmol/L (3.5-5.1)
[2024-07-14] MEDS: Losartan 50 MG Tab PO SCH (10:06)
[2024-07-14] MEDS: Aspirin 81 MG Tab.EC PO SCH (10:10)
[2024-07-14] MEDS: PARoxetine 20 MG Tab PO SCH (10:10)
[2024-07-14] MEDS: Pantoprazole 40 MG Tab.CR PO SCH (12:02)
[2024-07-14] MEDS ORDERED: atorvaSTATin 20 MG Tab PO SCH (21:00)
== END 2024-07-14 19:00 ==
LOC: MW.ED 16:37 → MW.MS 19:15
PROVIDERS: ADMIT Internal Medicine; ATTEND Internal Medicine
DX: I06.0 Rheumatic aortic stenosis (principal); R55 Syncope and collapse; I05.0 Rheumatic mitral stenosis; I10 Essential (primary) hypertension; E11.9 Type 2 diabetes mellitus without complications; E78.00 Pure hypercholesterolemia, unspecified; K21.9 Gastro-esophageal reflux disease without esophagitis; E03.9 Hypothyroidism, unspecified; Z79.890 Hormone replacement therapy; Z79.899 Other long term (current) drug therapy; Z79.84 Long term (current) use of oral hypoglycemic drugs
CPT/HCPCS: 36415; 70450; 80048; 80053; 81001; 84484; 85025; 93005; 93306; 99285; A9270; G0378